=== PATIENT | female | born 1995 | race African-American/Black ===

== ENCOUNTER 2018-11-20 14:35 | Inpatient (IN) ==
[2018-11-20] MEDS ORDERED: TYLENOL ONE (14:51)
[2018-11-20] MEDS ORDERED: TYLENOL PO ONE ×2 (14:52→22:52)
[2018-11-20 15:27] LABS: INFLUENZA A NEGATIVE (NEGATIVE); INFLUENZA B NEGATIVE (NEGATIVE)
[2018-11-20] MEDS ORDERED: NS 1,000 ML IV ONE (15:52)
[2018-11-20 16:12] LABS: BASO# 0.01 X1000 (0.0-0.2); HEMOGLOBIN 11.5 g/dL (12.0-16.0); IMM GRAN# 0.06 X1000 (0.0-0.04); IMM GRAN% 0.3 % (0.0-0.5); LYMPH# 0.62 X1000 (1.2-3.4); MCH 31.3 PG (27-31); MCHC 33.8 g/dL (33-37); MCV 92.4 FL (81-99); MONO# 2.17 X1000 (0.11-0.59); MONO% 10.5 % (1.7-9.3); MPV 11.3 FL (7.4-10.4); NEUT# 17.76 X1000 (1.4-6.5); NEUT% 86.2 % (42.2-75.2); PLT 161 X1000 (130-400); RBC 3.68 XMIL (4.2-5.4); RDW 12.5 % (11.5-14.5); WBC 20.62 X1000 (4.8-10.8)
[2018-11-20 16:27] LABS: BILIRUBIN URINE NEGATIVE (NEGATIVE); BLOOD URINE NEGATIVE (NEGATIVE); CLARITY SL. CLOUDY (CLEAR); COLOR YELLOW; GLUCOSE URINE NEGATIVE (NEGATIVE); KETONE URINE 3+(Large) mg/dL (NEGATIVE); LEUKOCYTES URINE 1+ (NEGATIVE); NITRITE URINE POSITIVE (NEGATIVE); PROTEIN URINE 1+(30 mg/dL) mg/dL (NEGATIVE); URINE BACTERIA 4+ /HFP; URINE EPITHELIAL CELLS >10 /HPF (<10); URINE RBC <10 /HPF (<10); URINE WBC TNTC /HPF (<10); UROBILINOGEN URINE 4 mg/dL
[2018-11-20 16:28] LABS: URINE CAST NONE SEEN /LPF; URINE CRYSTAL NONE SEEN /HPF; URINE SOURCE CLEAN CATCH; URINE YEAST NONE SEEN /HPF
[2018-11-20] MEDS ORDERED: ROCEPHIN 1 GM in NS 50 ML IV ONE (16:30)
[2018-11-20 16:39] LABS: LYMPHS 4 % (21-51); MONO 11 % (1-9); SEGS 85 % (42-75)
--- NOTE | 2018-11-20 16:57 | PROVIDER DOCUMENTATION ---
This chart was entered by Kristina Medrano Scribe, acting as scribe for Harley Bertrand CRNP. HPI-Fever - General Chief Complaint: Fever Stated Complaint: 36 WK / FEVER OF 104 / CHILLS Time Seen by Provider: 11/20/18 14:56 Source: patient Allergies/Adverse Reactions: Patient Allergies Allergy/AdvReac Type Severity Reaction Status Date / Time No Known Allergies Allergy Verified 05/31/14 10:25 Home Medications: Home Medication List Medication Instructions Recorded Confirmed Last Taken Type Naproxen Sodium [Anaprox Ds] 550 mg PO BID #20 tablet 07/09/17 Unknown Rx - History of Present Illness-Fever Nature of Presenting Problem: 23 y/o female presents to ED with fever, headache, and back pain onset yesterday. Pt reports she is 36 weeks . Pt is alert and oriented. 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 denies: chills Eyes: reports: no symptoms reported Ears, Nose, Mouth & Throat: reports: no symptoms reported Cardiovascular: denies: chest pain, palpitations Respiratory: denies: cough, shortness of breath Gastrointestinal: denies: abdominal pain, diarrhea, nausea, vomiting Genitourinary: reports: no symptoms reported Musculoskeletal: reports: back pain. denies: joint pain Integumentary: reports: no symptoms reported Neurological: reports: headache/migraines. denies: dizziness/vertigo, seizure Psychiatric: reports: no symptoms reported Endocrine: reports: no symptoms reported Hematologic/Lymphatic: reports: no symptoms reported Allergic/Immunologic: reports: no symptoms reported All Other Systems: Reviewed and Negative Past History - Adult - PAST MEDICAL HISTORY-ADULT Review of Records: reports: Old Records Reviewed, Nursing Assessment Review, Medications Reviewed Major Childhood Illnesses: reports: denies history Cardiovascular: reports: denies history Respiratory: reports: denies history Gastrointestinal: reports: denies history Obstetrical/Gynecological: reports: denies history Genitourinary: reports: denies history Musculoskeletal: reports: denies history Neurological: reports: denies history, headaches/migraines Psychiatric: reports: anxiety Endocrine/Immune: reports: denies history Other Conditions: reports: denies history - PRIOR SURGERIES/PROCEDURES Surgical/Procedure History: reports: appendectomy - IMMUNIZATION STATUS Childhood Immunizations: See Nurse Assessment Flu Vaccine: See Nurse Assessment - FAMILY HISTORY Family History: reviewed, not pertinent - SOCIAL HISTORY Smoking: non-smoker Substance Use: none/never Alcohol Use Frequency: never Living Situation: family Physical Exam-General - PHYSICAL EXAM-ADULT Initial Vital Signs Reviewed: Yes - CONSTITUTIONAL General Appearance: appears well, alert, no apparent distress - EYES Eyes: PERRL/EOMI, pink conjunctivae - HEAD, EARS, NOSE, MOUTH & THROAT HENMT: normocephalic/atraumatic, moist mucous membranes, other (white patches on tongue) - NECK Neck: non-tender, full range of motion - RESPIRATORY Respiratory: chest non-tender, lungs clear, normal breath sounds - CARDIOVASCULAR Cardiovascular: normal peripheral pulses, regular rate, rhythm - GASTROINTESTINAL (ABDOMEN) Abdominal Exam: normal bowel sounds, non tender, soft - MUSCULOSKELETAL Back Exam: normal inspection, no CVA tenderness Extremity: normal range of motion, non-tender, normal gait - SKIN Integumentary: normal color, warm/dry - NEUROLOGIC Neurologic: grossly normal - PSYCHIATRIC Psych/Mental Status: normal mood/affect, normal thought content, normal thought process Progress - PLAN OF CARE/RESULTS Progress/Plan/Lab Results: Vital Signs - 8 hr 11/20/18 14:46 Temperature 103.1 F H Pulse Rate 136 H Respiratory Rate 20 Blood Pressure 101/57 O2 Sat by Pulse Oximetry 96 Laboratory Results - last 24 hr 11/20/18 11/20/18 11/20/18 14:51 15:30 16:06 WBC 20.62 H RBC 3.68 L Hgb 11.5 L Hct 34.0 L MCV 92.4 MCH 31.3 H MCHC 33.8 RDW Std Deviation 12.5 Plt Count 161 MPV 11.3 H Immature Gran % (Auto) 0.3 Neut % (Auto) 86.2 H Lymph % (Auto) 3.0 L [place] % (Auto) 10.5 H Eos % (Auto) 0.0 Baso % (Auto) 0.0 Immature Gran # (Auto) 0.06 H Neut # (Auto) 17.76 H Lymph # (Auto) 0.62 L [place] # (Auto) 2.17 H Eos # (Auto) 0.00 Baso # (Auto) 0.01 Segmented Neutrophils 85 H Lymphocytes 4 L Monocytes 11 H Urine Source CLEAN CATCH Urine Color YELLOW Urine Clarity SL. CLOUDY A Urine pH 7.0 Ur Specific [place] 1.000 Urine Protein 1+(30 mg/dL) A Urine Ketones 3+(Large) A Urine Blood NEGATIVE Urine Nitrite POSITIVE A Urine Bilirubin NEGATIVE Urine Urobilinogen 4 Urine Microscopic RBC <10 Urine WBC 1+ A Urine Microscopic WBC TNTC A Ur Epithelial Cells >10 A Urine Crystals NONE SEEN Urine Bacteria 4+ Urine Casts NONE SEEN Urine Yeast NONE SEEN Urine Glucose NEGATIVE Influenza A (Rapid) NEGATIVE Influenza B (Rapid) NEGATIVE Group A Strep Rapid 11/20/18 16:06 WBC RBC Hgb Hct MCV MCH MCHC RDW Std Deviation Plt Count MPV Immature Gran % (Auto) Neut % (Auto) Lymph % (Auto) [place] % (Auto) Eos % (Auto) Baso % (Auto) Immature Gran # (Auto) Neut # (Auto) Lymph # (Auto) [place] # (Auto) Eos # (Auto) Baso # (Auto) Segmented Neutrophils Lymphocytes Monocytes Urine Source Urine Color Urine Clarity Urine pH Ur Specific [place] Urine Protein Urine Ketones Urine Blood Urine Nitrite Urine Bilirubin Urine Urobilinogen Urine Microscopic RBC Urine WBC Urine Microscopic WBC Ur Epithelial Cells Urine Crystals Urine Bacteria Urine Casts Urine Yeast Urine Glucose Influenza A (Rapid) Influenza B (Rapid) Group A Strep Rapid NEGATIVE Orders Category Date Time Status FHT [ Heart Tones] NOW Care 11/20/18 14:59 Active CBC WITH DIFF [HEME] Stat Lab 11/20/18 15:[address] Stat Lab 11/20/18 16:06 Completed Flu [INFLUENZA SCREEN PL] Stat Lab 11/20/18 14:[address] W/POSS RFLX CULT [URINALYSIS] Stat Lab 11/20/18 16:06 Completed URINE CULTURE [RM] Routine Lab 11/20/18 16:28 Ordered 0.9% Sodium Chloride Inj [Ns] 1,000 ml Med 11/20/18 15:52 Discontinued IV 999 mls/hr Acetaminophen [Tylenol] Med 11/20/18 14:51 Discontinued 650 mg .ROUTE .STK-MED ONE Acetaminophen [Tylenol] Med 11/20/18 14:52 Discontinued 650 mg PO NOW ONE CefTRIAXONE [Rocephin] 1 gm Med 11/20/18 16:30 Active 0.9% Sodium Chloride Inj [Ns] 50 ml IV NOW Transfer/Admit Order [TRANSFER] Routine Transfer 11/20/18 16:43 Ordered Result Diagrams: 11/20/18 15:30 - REASSESSMENT Reassessment #1 Time Reassessed: 15:54 (L&D nurse at bedside and monitored pt for 30 minutes. States baby's HR is approx 178bpm with contractions noted on the strip approx every 4-5 minutes according to L&D nurse. Will plan to hydrate pt) Reassessment #2 Time Reassessed: 16:34 (Reviewed results with pt. Pt's OB is Dr Wang in [place]. Reviewed results with Dr Parmar, will call oncall OB.) - CONSULTS/PCP/HOSPITALIST Notification #1 *Consult/PCP/Hospitalist*: Dr Gomez, oncall OB Time Discussed: 16:36 (Concerning pt's results and contractions) Consult Disposition: Admit Departure - Departure Date of Disposition Decision: 11/20/18 Time of Disposition Decision: 16:37 DIAGNOSIS: Pyelonephritis affecting in third trimester UTI (urinary tract infection) Qualifiers: Urinary tract infection type: site unspecified Hematuria presence: without hematuria Qualified Code(s): N39.0 - Urinary tract infection, site not specified Fever Qualifiers: Fever type: unspecified Qualified Code(s): R50.9 - Fever, unspecified Disposition: ADMITTED INPATIENT 09 Certified Medical Emergency: Emergent Condition: Fair Referrals and Follow-Ups: None,PCP [Primary Care Provider] - - Critical Care Note This patient required my direct & personal management of CC.: No Attestation - Physician/ JOMAR Attestation Patient care was provided by Advanced Practice Provider:: Yes Advanced Practice Provider:: Harley Bertrand Advanced Practice Provider documentation review:: The Mid-level provider documentation, treatment plan and medical decision making was reviewed by the physician who agrees with all treatment and medical decision making by the MLP. The physician spent face to face time with patient:: No Advanced Practice Provider documentation review:: Supervising physician onsite and consulted in the evaluation and care of this patient. The physician did not have a face to face encounter with the patient. This chart was documented by the indicated scribe, (Kristina Medrano, Kavita) and accurately reflects the services I performed and decisions made by , Harley Bertrand CRNP, as attested by the provider's signature.
[2018-11-20] MEDS ORDERED: TYLENOL PO PRN (17:54)
[2018-11-20] MEDS ORDERED: ROCEPHIN 1 GM/NS 1 GM/50 ML IVPB IV ONE (18:00)
[2018-11-20] MEDS ORDERED: BRETHINE SUBQ ONE (18:32)
[2018-11-20] MEDS ORDERED: BRETHINE ONE (18:35)
[2018-11-20] MEDS: D5 NS 1,000 ML IV SCH (21:29)
[2018-11-20] MEDS ORDERED: AMBIEN PO PRN (21:36)
[2018-11-20] MEDS ORDERED: ZOFRAN IV ONE (22:57)
[2018-11-20] MEDS ORDERED: ZOFRAN IV PRN (22:57)
--- NOTE | 2018-11-21 04:08 | HISTORY AND PHYSICAL ---
HISTORY OF PRESENT ILLNESS: Ms. Ibanez is a 23-year-old primigravida at 35 weeks 2 days, presenting complaining of fever and left flank pain. She has been followed by Dr. Wang at [facility], but presents to [facility] with the above symptoms. In the emergency room, Ms. Ibanez had a fever of 103, and a white count of 20,000, with nitrites in her urine. She was transferred to Labor and Delivery for further evaluation. Her care began at 8 weeks. She has a due date of 12/23/2018 by her LMP. Prenatally, her chlamydia and gonorrhea tests were negative, and Pap smear was normal. ALLERGIES: Throat swelling with eating bananas, otherwise no drug allergies. PAST MEDICAL HISTORY: Significant for genital herpes, and she has been treated for that early in her with Valtrex. She states she has not had an outbreak since the beginning of the , but is due for prophylaxis beginning at 36 weeks. PAST SURGICAL HISTORY: Status post appendectomy as teenager, without complications. SOCIAL HISTORY: She is single. Denies cigarettes, alcohol, or other drug use. FAMILY HISTORY: Significant for cancer, high blood pressure, and diabetes, leading to kidney failure in her grandmother. REVIEW OF SYSTEMS: She does complain of fever, left flank pain, some abdominal cramping, compatible with contractions. Denies leaking fluid, decreased movement, nausea and vomiting. PHYSICAL EXAMINATION: VITAL SIGNS: Her temp is 103.1 degrees, pulse rate 136, respirations 20, blood pressure 101/57. Pulse ox is 96 percent room air. She is 4 feet 11 inches, with a weight of 116 pounds. GENERAL: She is alert and oriented. LUNGS: Clear to auscultation bilaterally. She has left CVA tenderness, none on the right. ABDOMEN: Appropriate fundal height. Nontender. EXTREMITIES: Calves are nontender. Cx: closed/60/soft/post/Vtx/ND CAT I strip, irregular contractions LABORATORY STUDIES: White count is 20.62 with left shift, hemoglobin 11.5, platelet count 161,000. Urine is significant for 1+ protein, 3+ ketones, positive nitrites, and 4+ bacteria, with glucose negative. Her influenza A and B are negative. Group A strep rapid test is negative. IMPRESSION: Pyelonephritis, in a 35 week 2 day intrauterine . PLAN: We will admit for IV Rocephin 1 g q.24 hours will be given. Continue until afebrile x 48 hours. She will be on activity ad jonnathan Regular diet. Nonstress test twice daily. cc: Paola Gomez MD MTDD
[2018-11-21 06:15] LABS: UR AMPHETAMINES QUAL NONE DETECTED (NONE DETECT); UR BARBITUATES QUAL NONE DETECTED (NONE DETECT); UR BENZODIAZEPIN QUAL NONE DETECTED (NONE DETECT); UR CANNABINOIDS QUAL NONE DETECTED (NONE DETECT); UR COCAINE QUAL NONE DETECTED (NONE DETECT); UR METHADONE QUAL NONE DETECTED (NONE DETECT); UR METHAMPHETAMINE QUAL NONE DETECTED (NONE DETECT); UR OPIATES QUAL NONE DETECTED (NONE DETECT); UR OXYCODONE QUAL NONE DETECTED (NONE DETECT); UR PCP QUAL NONE DETECTED (NONE DETECT); UR PROPOXYPHENE QUAL NONE DETECTED (NONE DETECT); UR TCA QUAL NONE DETECTED (NONE DETECT)
[2018-11-21] MEDS: D5 NS 1,000 ML IV SCH (06:31)
--- NOTE | 2018-11-21 08:08 | OB/GYN PROGRESS NOTE ---
Progress Note OB - . Patient Problems: Current Active Problems Problem Status Onset UTI (urinary tract infection) Acute Pyelonephritis affecting in third trimester Acute Fever Acute OB Progress Note: Vital Signs - 24 hr 11/20/18 14:46 11/20/18 17:10 11/21/18 07:42 Temperature 103.1 F H 98.3 F 97.1 F L Pulse Rate 136 H 114 H 108 H Respiratory Rate 20 20 16 Blood Pressure 101/57 98/45 111/54 O2 Sat by Pulse Oximetry 96 98 100 Laboratory Results - last 24 hr 11/20/18 11/20/18 11/20/18 14:51 15:30 16:06 WBC 20.62 H RBC 3.68 L Hgb 11.5 L Hct 34.0 L MCV 92.4 MCH 31.3 H MCHC 33.8 RDW Std Deviation 12.5 Plt Count 161 MPV 11.3 H Immature Gran % (Auto) 0.3 Neut % (Auto) 86.2 H Lymph % (Auto) 3.0 L [place] % (Auto) 10.5 H Eos % (Auto) 0.0 Baso % (Auto) 0.0 Immature Gran # (Auto) 0.06 H Neut # (Auto) 17.76 H Lymph # (Auto) 0.62 L [place] # (Auto) 2.17 H Eos # (Auto) 0.00 Baso # (Auto) 0.01 Segmented Neutrophils 85 H Lymphocytes 4 L Monocytes 11 H Urine Source CLEAN CATCH Urine Color YELLOW Urine Clarity SL. CLOUDY A Urine pH 7.0 Ur Specific [place] 1.000 Urine Protein 1+(30 mg/dL) A Urine Ketones 3+(Large) A Urine Blood NEGATIVE Urine Nitrite POSITIVE A Urine Bilirubin NEGATIVE Urine Urobilinogen 4 Urine Microscopic RBC <10 Urine WBC 1+ A Urine Microscopic WBC TNTC A Ur Epithelial Cells >10 A Urine Crystals NONE SEEN Urine Bacteria 4+ Urine Casts NONE SEEN Urine Yeast NONE SEEN Urine Glucose NEGATIVE Urine Opiates Screen Ur Oxycodone Screen Urine Methadone Screen U Propoxyphene Qual Ur Barbituates Screen Ur Tricyclics Screen Ur Phencyclidine Scrn Ur Amphetamines Screen U Methamphetamines Scrn U Benzodiazepines Scrn Urine Cocaine Screen U Cannabinoids Screen Influenza A (Rapid) NEGATIVE Influenza B (Rapid) NEGATIVE Group A Strep Rapid 11/20/18 11/21/18 16:06 05:37 WBC RBC Hgb Hct MCV MCH MCHC RDW Std Deviation Plt Count MPV Immature Gran % (Auto) Neut % (Auto) Lymph % (Auto) [place] % (Auto) Eos % (Auto) Baso % (Auto) Immature Gran # (Auto) Neut # (Auto) Lymph # (Auto) [place] # (Auto) Eos # (Auto) Baso # (Auto) Segmented Neutrophils Lymphocytes Monocytes Urine Source Urine Color Urine Clarity Urine pH Ur Specific [place] Urine Protein Urine Ketones Urine Blood Urine Nitrite Urine Bilirubin Urine Urobilinogen Urine Microscopic RBC Urine WBC Urine Microscopic WBC Ur Epithelial Cells Urine Crystals Urine Bacteria Urine Casts Urine Yeast Urine Glucose Urine Opiates Screen NONE DETECTED Ur Oxycodone Screen NONE DETECTED Urine Methadone Screen NONE DETECTED U Propoxyphene Qual NONE DETECTED Ur Barbituates Screen NONE DETECTED Ur Tricyclics Screen NONE DETECTED Ur Phencyclidine Scrn NONE DETECTED Ur Amphetamines Screen NONE DETECTED U Methamphetamines Scrn NONE DETECTED U Benzodiazepines Scrn NONE DETECTED Urine Cocaine Screen NONE DETECTED U Cannabinoids Screen NONE DETECTED Influenza A (Rapid) Influenza B (Rapid) Group A Strep Rapid NEGATIVE Feeling somewhat better but still with left flank pain. Tm 103.1 Tn 97.1 Lungs CTA + L CVAT Calves nontender CBC pending Assess: Pyelonephritis in 35w3d primigravida Plan: Continue Rocephin Provide for analgesic control CBC daily Anticipate discharge after 48 hour afebrile and pain free status. Sean states understanding and agreeable.
[2018-11-21 08:18] LABS: BASO# 0.01 X1000 (0.0-0.2); EOS# 0.01 X1000 (0.0-0.7); HEMATOCRIT 33.8 % (37.0-47.0); IMM GRAN# 0.17 X1000 (0.0-0.04); IMM GRAN% 0.7 % (0.0-0.5); LYMPH# 0.85 X1000 (1.2-3.4); LYMPH% 3.4 % (20.5-51.1); MCH 30.9 PG (27-31); MCHC 32.5 g/dL (33-37); MCV 94.9 FL (81-99); MONO# 1.48 X1000 (0.11-0.59); MPV 11.4 FL (7.4-10.4); NEUT# 22.28 X1000 (1.4-6.5); NEUT% 89.9 % (42.2-75.2); PLT 139 X1000 (130-400); RBC 3.56 XMIL (4.2-5.4); RDW 12.8 % (11.5-14.5)
[2018-11-21] MEDS: PERCOCET-5 PO PRN ×2 (08:21→15:48)
[2018-11-21] MEDS: ZOVIRAX PO SCH ×3 (08:21→17:03)
[2018-11-21 09:00] LABS: BANDS 4 % (0-1); LYMPHS 6 % (21-51); MONO 6 % (1-9); SEGS 84 % (42-75)
[2018-11-21] MEDS: TYLENOL PO PRN ×2 (11:07→19:13)
--- NOTE | 2018-11-21 15:57 | OB/GYN PROGRESS NOTE ---
Progress Note OB - . Patient Problems: Current Active Problems Problem Status Onset UTI (urinary tract infection) Acute Pyelonephritis affecting in third trimester Acute Fever Acute OB Progress Note: Vital Signs - 24 hr 11/20/18 17:10 11/21/18 07:42 11/21/18 09:07 Temperature 98.3 F 97.1 F L 99.5 F Pulse Rate 114 H 108 H 122 H Respiratory Rate 20 16 16 Blood Pressure 98/45 111/54 O2 Sat by Pulse Oximetry 98 100 11/21/18 10:58 11/21/18 11:59 11/21/18 13:56 Temperature 100.5 F H 100.7 F H 99.2 F Pulse Rate 120 H 110 H 105 H Respiratory Rate 18 Blood Pressure 96/46 O2 Sat by Pulse Oximetry 100 Laboratory Results - last 24 hr 11/20/18 11/20/18 11/20/18 15:30 16:06 16:06 WBC 20.62 H RBC 3.68 L Hgb 11.5 L Hct 34.0 L MCV 92.4 MCH 31.3 H MCHC 33.8 RDW Std Deviation 12.5 Plt Count 161 MPV 11.3 H Immature Gran % (Auto) 0.3 Neut % (Auto) 86.2 H Lymph % (Auto) 3.0 L [place] % (Auto) 10.5 H Eos % (Auto) 0.0 Baso % (Auto) 0.0 Immature Gran # (Auto) 0.06 H Neut # (Auto) 17.76 H Lymph # (Auto) 0.62 L [place] # (Auto) 2.17 H Eos # (Auto) 0.00 Baso # (Auto) 0.01 Segmented Neutrophils 85 H Band Neutrophils Lymphocytes 4 L Monocytes 11 H Urine Source CLEAN CATCH Urine Color YELLOW Urine Clarity SL. CLOUDY A Urine pH 7.0 Ur Specific [place] 1.000 Urine Protein 1+(30 mg/dL) A Urine Ketones 3+(Large) A Urine Blood NEGATIVE Urine Nitrite POSITIVE A Urine Bilirubin NEGATIVE Urine Urobilinogen 4 Urine Microscopic RBC <10 Urine WBC 1+ A Urine Microscopic WBC TNTC A Ur Epithelial Cells >10 A Urine Crystals NONE SEEN Urine Bacteria 4+ Urine Casts NONE SEEN Urine Yeast NONE SEEN Urine Glucose NEGATIVE Urine Opiates Screen Ur Oxycodone Screen Urine Methadone Screen U Propoxyphene Qual Ur Barbituates Screen Ur Tricyclics Screen Ur Phencyclidine Scrn Ur Amphetamines Screen U Methamphetamines Scrn U Benzodiazepines Scrn Urine Cocaine Screen U Cannabinoids Screen Group A Strep Rapid NEGATIVE 11/21/18 11/21/18 05:37 07:43 WBC 24.80 H RBC 3.56 L Hgb 11.0 L Hct 33.8 L MCV 94.9 MCH 30.9 MCHC 32.5 L RDW Std Deviation 12.8 Plt Count 139 MPV 11.4 H Immature Gran % (Auto) 0.7 H Neut % (Auto) 89.9 H Lymph % (Auto) 3.4 L [place] % (Auto) 6.0 Eos % (Auto) 0.0 Baso % (Auto) 0.0 Immature Gran # (Auto) 0.17 H Neut # (Auto) 22.28 H Lymph # (Auto) 0.85 L [place] # (Auto) 1.48 H Eos # (Auto) 0.01 Baso # (Auto) 0.01 Segmented Neutrophils 84 H Band Neutrophils 4 H Lymphocytes 6 L Monocytes 6 Urine Source Urine Color Urine Clarity Urine pH Ur Specific [place] Urine Protein Urine Ketones Urine Blood Urine Nitrite Urine Bilirubin Urine Urobilinogen Urine Microscopic RBC Urine WBC Urine Microscopic WBC Ur Epithelial Cells Urine Crystals Urine Bacteria Urine Casts Urine Yeast Urine Glucose Urine Opiates Screen NONE DETECTED Ur Oxycodone Screen NONE DETECTED Urine Methadone Screen NONE DETECTED U Propoxyphene Qual NONE DETECTED Ur Barbituates Screen NONE DETECTED Ur Tricyclics Screen NONE DETECTED Ur Phencyclidine Scrn NONE DETECTED Ur Amphetamines Screen NONE DETECTED U Methamphetamines Scrn NONE DETECTED U Benzodiazepines Scrn NONE DETECTED Urine Cocaine Screen NONE DETECTED U Cannabinoids Screen NONE DETECTED Group A Strep Rapid c/o loss of fluid when standing. No vaginal bleeding or contractions. Tm 107 Tn 99 P 110-105 SSE: negative for pooling NST: NR but moderate variability present; US 06/25 for modified BPP; PATEL 15 WBC 24K w/left shift Urine C&S prelim: gram negative kristen >100K Assess: Pyelonephritis, 35w3d No evidence of ruptured membranes BPP 06/27 with nonreactive NST but reassuring variability Plan: Continue testing daily Continue Rocephin daily Await ID of [id number]
[2018-11-21] MEDS ORDERED: ROCEPHIN 1 GM in NS 50 ML IV SCH (18:15)
[2018-11-21] MEDS ORDERED: MOTRIN PO ONE (20:13)
[2018-11-21] MEDS ORDERED: ROCEPHIN 1 GM in NS 50 ML IV ONE (20:28)
--- NOTE | 2018-11-22 02:40 | PROGRESS NOTE ---
DATE: 11/21/2018 SUBJECTIVE: All in all the patient is feeling better. She is still having a little bit of back pain. When asked about her breathing, she says that from time to time it is "a little bit hard." All in all she feels better except when she is having a fever. OBJECTIVE: Vital Signs: The patient just spiked a temperature to 103.1. General Appearance: Well nourished, well developed, no distress, comfortable appearing. Respirations: Are even and nonlabored. Lungs: Clear to auscultation throughout. Back: She has minimal left-sided CVA tenderness. MEDICATIONS: She has been on Rocephin 1 g x2 doses. ASSESSMENT: Pyelonephritis. Culture has grown out greater than 100,000 gram-negative rods. PLAN: We will increase her Rocephin to 2 g every 24 hours. Ibuprofen for this temperature elevation. Check urine culture. Continue to monitor status closely. cc: MD Paola Martin MD
[2018-11-22 07:14] LABS: BASO# 0.02 X1000 (0.0-0.2); BASO% 0.1 % (0.0-0.8); EOS# 0.03 X1000 (0.0-0.7); EOS% 0.1 % (0.0-10.0); HEMATOCRIT 31.9 % (37.0-47.0); HEMOGLOBIN 10.2 g/dL (12.0-16.0); IMM GRAN# 0.24 X1000 (0.0-0.04); IMM GRAN% 0.8 % (0.0-0.5); LYMPH# 0.98 X1000 (1.2-3.4); LYMPH% 3.4 % (20.5-51.1); MCH 30.4 PG (27-31); MCV 94.9 FL (81-99); MONO% 11.2 % (1.7-9.3); MPV 11.4 FL (7.4-10.4); NEUT% 84.4 % (42.2-75.2); PLT 134 X1000 (130-400); RBC 3.36 XMIL (4.2-5.4); RDW 12.8 % (11.5-14.5); WBC 28.67 X1000 (4.8-10.8)
[2018-11-22 07:42] LABS: BANDS 7 % (0-1); LYMPHS 10 % (21-51); MONO 4 % (1-9); SEGS 79 % (42-75)
[2018-11-22 07:43] LABS: HYPOCHROM OCCASIONAL; POIKILOCYTOSIS OCCASIONAL; POLYCHROM OCCASIONAL; TARGET CELLS OCCASIONAL
[2018-11-22 07:44] LABS: STOMATOCYTES OCCASIONAL
[2018-11-22] MEDS: ZOVIRAX PO SCH ×3 (09:07→17:15)
--- NOTE | 2018-11-22 13:30 | PROGRESS NOTE ---
DATE: 11/22/2018 SUBJECTIVE: No complaints. Reports fever overnight. Active baby. No vaginal bleeding. No loss of fluid. No PIH symptoms. OBJECTIVE: Vital Signs: T-max 102.7 at 2122 yesterday. T-current 97.8, heart rate 83, respirations 16, blood pressure 91/46. O2 sat 99% on room air. Exam: Alert and oriented in no acute distress. Pulmonary: Clear to auscultation bilaterally. CV: Regular rate and rhythm. Abdomen soft, nondistended, gravid. No clubbing, cyanosis, or edema. Reassuring. LABORATORY DATA: White count 24.8. Hemoglobin 11.0, hematocrit 33.8. Platelets 139. Urine culture greater than 100,000 colony forming units, gram-negative rods. Awaiting susceptibility. ASSESSMENT: Ms. Ibanez is a 23-year-old 1, para 0, at 35 weeks and 4 days, admitted with pyelonephritis, currently on Rocephin 2 g. The patient had a T-max of 102.7 at 2200 last night. We will continue 2 g of Rocephin as scheduled. Continue to monitor her improvement. A.m. labs are still pending at time of dictation. PLAN: ID. Continue Rocephin 2 g. Will monitor for afebrile x24 hours prior to discharge. Awaiting susceptibilities for p.o. medication transition prior to discharge. cc: MD Paola Snyder MD
[2018-11-22] MEDS: TYLENOL PO PRN (15:31)
[2018-11-22] MEDS: ROCEPHIN 2 GM in NS 50 ML IV SCH (18:02)
[2018-11-23] MEDS: TYLENOL PO PRN ×2 (05:06→16:44)
[2018-11-23 06:54] LABS: BASO# 0.01 X1000 (0.0-0.2); BASO% 0.1 % (0.0-0.8); EOS# 0.01 X1000 (0.0-0.7); EOS% 0.1 % (0.0-10.0); HEMATOCRIT 30.2 % (37.0-47.0); HEMOGLOBIN 9.9 g/dL (12.0-16.0); IMM GRAN# 0.09 X1000 (0.0-0.04); IMM GRAN% 0.6 % (0.0-0.5); LYMPH# 0.81 X1000 (1.2-3.4); LYMPH% 5.4 % (20.5-51.1); MCH 30.7 PG (27-31); MCHC 32.8 g/dL (33-37); MCV 93.5 FL (81-99); MONO# 1.46 X1000 (0.11-0.59); MONO% 9.8 % (1.7-9.3); MPV 11.5 FL (7.4-10.4); NEUT# 12.49 X1000 (1.4-6.5); PLT 169 X1000 (130-400); RBC 3.23 XMIL (4.2-5.4); RDW 12.8 % (11.5-14.5); WBC 14.87 X1000 (4.8-10.8)
--- NOTE | 2018-11-23 08:08 | PROGRESS NOTE ---
DATE: 11/23/2018 SUBJECTIVE: No complaints. Patient reports subjective fevers earlier this morning. Reports active baby. No vaginal bleeding or loss of fluid. No PIH symptoms. OBJECTIVE: Vital Signs: T-max 102.6 degrees at 5:00 this morning, heart rate 99, respirations 16, blood pressure 92/50, O2 saturation 98% on room air. Physical Examination: General: Alert and oriented, no acute distress. Pulmonary: Clear to auscultation bilaterally. CV: Regular rate and rhythm. Abdomen: Soft, nondistended, nontender, gravid. Extremities: No clubbing, cyanosis, or edema. Labs: CBC: White count 14.8, hemoglobin 9.9, hematocrit 30.2, platelets 169,000. ASSESSMENT: Ms. Ibanez is a 23-year-old, 1, para 0, at 35 weeks and 5 days, admitted with pyelonephritis, currently on Rocephin 2 g. The patient continues to have spiking of temperatures. However, her white count has improved greatly. Cultures were reviewed and were positive for Escherichia coli, pansensitive. We will continue to monitor for improvement. PLAN: ID, continue Rocephin 2 g. White count down to 14 from 24 this morning. The patient is clinically stable and NSTs remain reassuring. Plan to continue IV antibiotics until afebrile x24 hours. Then we will change to p.o. medication prior to discharge. cc: MD Paola Snyder MD
[2018-11-23] MEDS: ZOVIRAX PO SCH ×3 (09:06→16:41)
[2018-11-23] MEDS: PERCOCET-5 PO PRN (16:44)
[2018-11-23] MEDS: ROCEPHIN 2 GM in NS 50 ML IV SCH (17:47)
[2018-11-24] MEDS: PERCOCET-5 PO PRN (00:16)
--- NOTE | 2018-11-24 06:27 | PROGRESS NOTE ---
DATE: 11/24/2018 SUBJECTIVE: No complaints. She is feeling better. OBJECTIVE: She has now been afebrile for the last 24 hours. Last temperature elevation was 101.7 yesterday morning at 06:00 in the morning. The highest temperature since has been 99.General Appearance: Patient is sleepy, but easily arousable. Back: Still seems to have a little bit of left CVA tenderness. No right CVA tenderness. ASSESSMENT: Pyelonephritis. She now is on hospital day #4 on Rocephin IV. PLAN: We need to check her white count this morning. I would like for her to have another dose of Rocephin this evening, and if she remains afebrile, we can discharge her home tomorrow morning on something oral. cc: MD Paola Martin MD
[2018-11-24 06:41] LABS: BASO# 0.01 X1000 (0.0-0.2); BASO% 0.1 % (0.0-0.8); EOS# 0.03 X1000 (0.0-0.7); EOS% 0.3 % (0.0-10.0); HEMATOCRIT 30.3 % (37.0-47.0); HEMOGLOBIN 9.8 g/dL (12.0-16.0); IMM GRAN# 0.08 X1000 (0.0-0.04); IMM GRAN% 0.9 % (0.0-0.5); LYMPH# 1.17 X1000 (1.2-3.4); LYMPH% 13.1 % (20.5-51.1); MCH 30.2 PG (27-31); MCHC 32.3 g/dL (33-37); MCV 93.2 FL (81-99); MONO# 1.11 X1000 (0.11-0.59); MONO% 12.4 % (1.7-9.3); MPV 10.9 FL (7.4-10.4); NEUT# 6.52 X1000 (1.4-6.5); NEUT% 73.2 % (42.2-75.2); PLT 184 X1000 (130-400); RBC 3.25 XMIL (4.2-5.4); RDW 12.8 % (11.5-14.5); WBC 8.92 X1000 (4.8-10.8)
[2018-11-24] MEDS ORDERED: MILK OF MAGNESIA PO ONE ×2 (09:28→11:45)
[2018-11-24] MEDS ORDERED: DULCOLAX PR PRN (09:30)
[2018-11-24] MEDS: ZOVIRAX PO SCH ×3 (09:42→18:55)
[2018-11-24] MEDS: TYLENOL PO PRN (16:41)
[2018-11-24] MEDS: ROCEPHIN 2 GM in NS 50 ML IV SCH (18:55)
--- NOTE | 2018-11-25 08:49 | DISCHARGE SUMMARY ---
ADMISSION DATE: 11/20/2018 DISCHARGE DATE: 11/25/2018 DISCHARGE DIAGNOSES: 1. 35 weeks gestation. 2. Pyelonephritis. SUMMARY: A 23-year-old patient of Dr. Wang presented at 35 weeks gestation complaining of fever, chills, and back pain. Her urinalysis and physical exam were consistent with pyelonephritis. She had temperature elevations of 103 in the emergency room. She was admitted and initially started on Rocephin 1 g q. 24 hours. She remained febrile and, on hospital day #1, the Rocephin was increased to 2 g q. 24 hours. She continued with intermittent spiking fevers over the next couple of days with the last temperature being 101.7 on hospital day # 3. It was also of note that her gonorrhea culture from the emergency room was positive. Chlamydia was negative. Urine culture grew out E coli sensitive to Rocephin. She received a total of 4 doses of Rocephin over her hospital stay. At the time of discharge, she had been afebrile for 48 hours. She now is discharged home in good condition on the morning of hospital day #5. DIET: Regular. ACTIVITY: Pelvic rest. MEDICATIONS: 1. Macrobid 1 p.o. b.i.d. FOLLOWUP: Followup will be with Dr. Wang today. cc: MD Paola Martin MD MTDD
[2018-11-25] MEDS: ZOVIRAX PO SCH (09:13)
[2018-11-25 09:33] VITALS: BP 107/65
== END 2018-11-25 10:00 | disposition home or self-care (01) | DRG 832 ==
LOC: P.ED 14:35 → P.LD 16:58
PROVIDERS: ADMIT Obstetrics & Gynecology; ATTEND Obstetrics & Gynecology
CPT/HCPCS: 59025; 76819; 80104; 80301; 80305; 81001; 85025; 87077; 87081; 87088; 87186; 87275; 87276; 87430; 87804; A9270; G0431; G0434; G0477; J0696; J2405; J3105; J7030; J7042